=== PATIENT | female | born 1990 | race Two or more races ===

== ENCOUNTER 2022-01-11 10:52 | Observation (INO) | payer MEDICAID, OTHER ==
[~2022-01-11] VITALS: Ht 170.2 cm; Wt 91.6 kg
--- NOTE | 2022-01-11 11:22 | NUR ---
PATIENT HAS BEEN SCREENED AND CATEGORIZED LOW NUTRITION RISK. PATIENT WILL BE SEEN WITHIN 7 DAYS OF ADMISSION. 01/18/22 GEO RAHMAN MS, RDN
[2022-01-11 11:30] VITALS: BP 121/73
== END 2022-01-11 12:08 | disposition home or self-care (01) ==
LOC: MLD 10:52
PROVIDERS: ADMIT Obstetrics & Gynecology; ATTEND Obstetrics & Gynecology
DX: O46.93 Antepartum hemorrhage, unspecified, third trimester (principal); Z20.822 Contact with and (suspected) exposure to COVID-19; Z3A.39 39 weeks gestation of pregnancy
CPT/HCPCS: 59025; 81000; 87426; G0378; G0379

== ENCOUNTER 2022-01-18 15:31 | Emergency (ER) | payer OTHER ==
[~2022-01-18] VITALS: Ht 170.2 cm; Wt 85.7 kg
[2022-01-18 15:45] VITALS: BP 143/95
--- NOTE | 2022-01-18 16:35 | NUR ---
BIB SELF C/O 03/05 RLQ ABDOMINAL PAIN X YESTERDAY. PT HAD EMERGENCY C SECTION AT [facility] 6 DAYS AGO. DENIES N/V/D; SKIN IS PINK/WARM/DRY; ABDOME SOFT , NON - TENDER. AAOX4 WITH EVEN AND STEADY GAIT; LUNGS CLEAR BL; HR EVEN AND REGULAR; PT DENIES ANY FEVER, CP, SOB, OR COUGH AT THIS TIME.
--- NOTE | 2022-01-18 17:00 | NUR ---
PATIENT AMBULATED TO BED 2
--- NOTE | 2022-01-18 17:23 | NUR ---
Patient discharged with v/s stable. Written and verbal after care instructions given and explained. Patient verbalized understanding. Ambulatory with to car. All questions addressed prior to discharge. Advised to follow up with PMD.
== END 2022-01-18 17:23 | disposition home or self-care (01) ==
LOC: MED 15:31
DX: O90.89 Other complications of the puerperium, not elsewhere classified (principal); R10.31 Right lower quadrant pain; Z48.01 Encounter for change or removal of surgical wound dressing; O99.53 Diseases of the respiratory system complicating the puerperium; R05.9 Cough, unspecified; Z98.890 Other specified postprocedural states
CPT/HCPCS: 99281